=== PATIENT | female | born 1975 | race Caucasian/White ===

== ENCOUNTER 2023-06-28 17:58 | Emergency (ER) | payer MEDICAID ==
[~2023-06-28] VITALS: Ht 162.6 cm; Wt 63.5 kg
[2023-06-28 18:19] VITALS: BP 167/96; PULSE 86; RESP 16; TEMP 97.9; O2SAT 97
[2023-06-28] MEDS ORDERED: NAPR-1176 MT (19:41)
== END 2023-06-28 20:20 | disposition home or self-care (01) ==
LOC: ER 17:58
DX: M70.21 Olecranon bursitis, right elbow (principal); E11.9 Type 2 diabetes mellitus without complications; Z98.890 Other specified postprocedural states
CPT/HCPCS: 99282